=== PATIENT | male | born 1975 | race Caucasian/White ===

== ENCOUNTER 2020-04-14 10:53 | Outpatient (CLI) | payer OTHER, SELFPAY ==
--- NOTE | ~2020-04-14 | MR_ITS ---
EXAMINATION: MR cervical spine wo con EXAM DATE: 04/14/2020 11:39 INDICATION: Cervical fusion. Left arm Radiculopathy. TECHNIQUE: Multi-sequential, multiplanar MR images of the cervical spine were obtained without contra st. Axial T2, axial T2 MERGE sequence. Sagittal T1, T2, T2 fat saturation images also obtained. Th ere is no prior study for comparison. FINDINGS: There is mild to moderate disc disease at C3-4. Interbody, C4-5 and 5-6 vertebral bodies h ave solid bone osseous fusion. C6-7 has anterior plate with supporting screws, moderate disc disease. The spinal cord signal intensity and intrinsic morphology is normal. Cervicomedullary junction is n ormal in appearance. There are no suspicious marrow signal abnormalities. Paraspinal soft tissue is u nremarkable. Level by level evaluation: C2-C3: Disc does not extend beyond the endplate margin. Uncovertebral joint arthropathy: Mild bilateral. Facet joint arthropathy: Mild to moderate right, mild left. Neural foraminal stenosis: Mild right. Central canal stenosis: No stenosis. C3-C4: There is a mild diffuse disc bulge. Uncovertebral joint arthropathy: Moderate bilateral. Facet joint arthropathy: Moderate bilateral. Neural foraminal stenosis: Moderate to severe right, moderate left. Central canal stenosis: Mild. C4-C5: This level is fused. Uncovertebral joint arthropathy: Fused.. Facet joint arthropathy: None. Neural foraminal stenosis: No stenosis. Central canal stenosis: No stenosis. C5-C6: This level is fused. Uncovertebral joint arthropathy: Fused. Facet joint arthropathy: None. Neural foraminal stenosis: No stenosis. Central canal stenosis: No stenosis. C6-C7: There is a mild diffuse disc bulge. Uncovertebral joint arthropathy: Moderate to severe left, moderate right. Facet joint arthropathy: Moderate right, mild to moderate left. Neural foraminal stenosis: Moderate left, mild to moderate right. Central canal stenosis: Mild. C7-T1: Disc does not extend beyond the endplate margin. Uncovertebral joint arthropathy: Mild bilateral. Facet joint arthropathy: Moderate right, mild left. Neural foraminal stenosis: No stenosis. Central canal stenosis: No stenosis. IMPRESSION: Cervical fusion, multilevel spondylosis as above. Reviewed, dictated and finalized at location B.
== END 2020-04-14 10:54 | disposition home or self-care (01) ==
LOC: ANHIMG 10:58
PROVIDERS: PCP Internal Medicine; Visit Provider Nurse Practitioner
DX: M47.812 Spondylosis without myelopathy or radiculopathy, cervical region (principal); Z98.1 Arthrodesis status
CPT/HCPCS: 72141

== ENCOUNTER 2020-05-03 10:01 | Outpatient (CLI) | payer OTHER, SELFPAY ==
--- NOTE | ~2020-05-03 | XR_ITS ---
EXAMINATION: XR chest 2V 05/03/2020 10:28 INDICATION: Chest pain PROCEDURE: 2 view chest COMPARISON: No prior studies for comparison. FINDINGS: The lungs are clear. The cardiomediastinal silhouette is within normal limits. There are no pleural effusions. There is no pneumothorax suspected. IMPRESSION: 1: NO ACUTE CARDIOPULMONARY DISEASE. Reviewed, dictated and finalized at location B.
== END 2020-05-03 10:02 | disposition home or self-care (01) ==
PROVIDERS: PCP Internal Medicine; Visit Provider Clinical Nurse Specialist
DX: R06.89 Other abnormalities of breathing (principal)
CPT/HCPCS: 71046

== ENCOUNTER 2022-05-19 08:02 | Outpatient (CLI) | payer OTHER, SELFPAY ==
[2022-05-19 11:04] LABS: Basophils Absolute Auto 0.1 K/mm3 (0.0-0.1); Basophils Percent Auto 0.6 % (0.2-1.2); Eosinophils Absolute Auto 0.2 K/mm3 (0-0.3); Eosinophils Percent Auto 1.4 % (0-4.4); Hematocrit 47.3 % (42.0-52.0); Hemoglobin 15.8 g/dL (14.0-18.0); Immature Granulocyte Absolute 0.08 K/mm3 (0.00-0.031); Immature Granulocyte Percent A 0.5 % (0-0.5); Lymphocytes Absolute Auto 3.48 K/mm3 (0.9-3.2); Lymphocytes Percent Auto 20.5 % (18.3-44.2); Mean Corpuscular HGB Conc 33.4 g/dl (32-36); Mean Corpuscular Hemoglobin 31.7 pg (26-34); Mean Platelet Volume 8.7 fl (7.4-10.4); Monocytes Absolute Auto 1.4 K/mm3 (0.1-0.6); Monocytes Percent Auto 8.2 % (2.6-8.5); Neutrophils Absolute Auto 11.7 K/mm3 (1.3-6.7); Neutrophils Percent Auto 68.8 % (45.5-73.1); Platelet Count Result 437 k/mm3 (150-375); Red Blood Count 4.98 M/mm3 (4.6-6.20); Red Cell Distribution Width 14.5 % (11.5-14.5)
[2022-05-19 12:48] LABS: Erythrocyte Sedimentation Rate 4 mm/hr (0-20)
== END 2022-05-19 08:03 | disposition home or self-care (01) ==
LOC: ANHGOSHLAB 08:03
PROVIDERS: PCP Internal Medicine; Visit Provider Internal Medicine
DX: D72.829 Elevated white blood cell count, unspecified (principal); M54.6 Pain in thoracic spine
CPT/HCPCS: 36415; 85025; 85652

== ENCOUNTER 2022-05-25 07:44 | Outpatient (CLI) | payer OTHER, SELFPAY ==
--- NOTE | ~2022-05-25 | MR_ITS ---
EXAMINATION: MR thoracic spine wo con DATE: 05/25/2022 09:28 INDICATION: Thoracic back pain. TECHNIQUE: Magnetic resonance imaging (MRI) of the thoracic spine was performed without intravenous c ontrast. COMPARISON: Chest 2 views 05/03/2020 FINDINGS: Bone alignment is normal. There is mild chronic anterior wedging of T6-T9 vertebral bodies. There is mildly decreased disc height from T2-T3 through T8-T9. At T1-T2, there is a left central an d foraminal zone extrusion with mild central canal stenosis. At T2-T3, there is a central extrusion w ith mild central canal stenosis and ventral indentation of the spinal cord. At T3-T4, there is a left foraminal extrusion. At T4-T5, there is a left central extrusion with mild central canal stenosis an d ventral indentation of the spinal cord. At T5-T6, there is a left central extrusion with mild centr al canal stenosis. At T6-T7, there is a central extrusion with mild central canal stenosis and ventra l indentation of the spinal cord. At T7-T8, there is a central extrusion with mild central canal sten osis and ventral indentation of the spinal cord. At T10-T11, there is a central extrusion with mild c entral canal stenosis. There is multilevel mild to moderate facet joint osteoarthritis. On the right, there is mild neural foraminal stenosis at T8-T9. On the left, there is mild neural foraminal stenos is at T1-T2, T2-T3, T3-T4, T8-T9, and T9-T10. The spinal cord signal intensity is normal. IMPRESSION: 1. Mild thoracic spondylosis. Reviewed, dictated and finalized at location A.
== END 2022-05-25 07:45 | disposition home or self-care (01) ==
LOC: ANHIMG 07:54
PROVIDERS: PCP Internal Medicine; Visit Provider Clinical Nurse Specialist
DX: M48.02 Spinal stenosis, cervical region (principal); M47.894 Other spondylosis, thoracic region
CPT/HCPCS: 72146

== ENCOUNTER 2022-06-11 09:18 | Outpatient (CLI) | payer OTHER, SELFPAY ==
[2022-06-12 10:08] LABS: Basophils Absolute Auto 0.1 K/mm3 (0.0-0.1); Basophils Percent Auto 0.3 % (0.2-1.2); Eosinophils Absolute Auto 0.3 K/mm3 (0-0.3); Eosinophils Percent Auto 1.8 % (0-4.4); Hematocrit 46.6 % (42.0-52.0); Hemoglobin 15.4 g/dL (14.0-18.0); Immature Granulocyte Absolute 0.05 K/mm3 (0.00-0.031); Immature Granulocyte Percent A 0.3 % (0-0.5); Lymphocytes Absolute Auto 2.58 K/mm3 (0.9-3.2); Lymphocytes Percent Auto 17.2 % (18.3-44.2); Mean Corpuscular Volume 96.9 fl (80-100); Mean Platelet Volume 9.3 fl (7.4-10.4); Monocytes Absolute Auto 0.9 K/mm3 (0.1-0.6); Monocytes Percent Auto 6.2 % (2.6-8.5); Neutrophils Absolute Auto 11.1 K/mm3 (1.3-6.7); Neutrophils Percent Auto 74.2 % (45.5-73.1); Platelet Count Result 377 k/mm3 (150-375); Red Blood Count 4.81 M/mm3 (4.6-6.20); Red Cell Distribution Width 14.4 % (11.5-14.5)
[2022-06-12 10:32] LABS: Alanine Aminotransferase 15 U/L (6-50); Albumin Level 4.4 g/dL (3.5-5.1); Alkaline Phosphatase 66 U/L (38-126); Anion Gap 11 mmol/L (8-16); Aspartate Amino Transferase 19 U/L (17-59); Bilirubin,Total 0.4 mg/dL (0.2-1.3); Blood Urea Nitrogen 15 mg/dL (9-20); CRP 1.4 mg/dL (<1.0); Calcium 8.8 mg/dL (8.4-10.2); Carbon Dioxide 24 mmol/L (22-30); Chloride 100 mmol/L (98-107); Estimated Glomerular Filt Rate > 60; Glucose 109 mg/dL (65-110); Potassium 3.8 mmol/L (3.4-5.0); Sodium 135 mmol/L (137-145)
[2022-06-12 11:47] LABS: Erythrocyte Sedimentation Rate 11 mm/hr (0-20)
== END 2022-06-11 09:19 | disposition home or self-care (01) ==
LOC: ANHLAB 09:20
PROVIDERS: PCP Internal Medicine; Visit Provider Internal Medicine Hematology & Oncology
DX: D72.829 Elevated white blood cell count, unspecified (principal)
CPT/HCPCS: 36415; 80053; 85025; 85652; 86140

== ENCOUNTER 2023-07-06 08:56 | Outpatient (RCR) | payer OTHER, SELFPAY ==
--- NOTE | 2023-07-06 09:51 | PTOPEVAL1 ---
Assessment and note entered by Judith Greenberg, PT, DPT Evaluation Information Assessment Status Evaluation Diagnosis R arm pain Onset 7 months Subjective Information Pt states he is having a lot of pain in his elbow when he is trying to entry level things in his R hand. He states this happened a few years ago in his L arm and he had another neck surgery and this fixed the pain on his L side. He reports a history of 4 cervical and 2 lumbar spinal surgeries, his neck is fused from C4-T1, he states one of these levels broke and is no longer fused. He reports a 7 month history of R arm pain. He reports pain inside his L shoulder blade, his R elbow at the lateral epicondyle, and chronic, almost daily headaches. He also reports numbness and tingling in his R hand. Reported Pain Level Pain Score 2: Self Report Assessment PT Clinical Summary Raheel presents to therapy today for his initial evaluation with a diagnosis of R arm pain. Today he demonstrates active wrist ROM that is decreased on his R compared to his L and has increased stretch sensation during. He demonstrates point tenderness at his R lateral epicondyle. Today he was instructed in a HEP and home ice massage to manage inflammation. He is scheduled for follow up in 1 month. Plan of Care Interventions Hot Pack/Cold Pack,Manual Therapy,Neuro Re- education,Patient/Caregiver Educati,Therapeutic Activities,Therapeutic Exercise PT Services Indicated Yes Treatment Frequency and follow up in 1 month Duration These treatments will address the objective and functional deficits as defined above. The patient will be advanced safely and appropriately in order for the patient to progress towards his/her prior level of function. Additional exercises will be introduced and as well as a comprehensive home exercise program upon discharge, if needed, ?to ensure carryover of functional gains achieved in the clinic. This treatment plan has been reviewed and agreement upon by the patient.
--- NOTE | 2023-08-03 09:15 | PCPTNOTE ---
Patient did not show up for scheduled appointment this date. Called and LVM with instructions to follow up.
--- NOTE | 2023-08-24 09:53 | PTOPDC ---
Assessment and note entered by Judith Greenberg, PT, DPT Evaluation Information Assessment Status Discharge - Pt Not Present Diagnosis R arm pain Onset 7 months Subjective Information Pt did not show up for his scheduled re-evaluation on 08/03/23. LVM for pt with follow up instructions and have not heard back from him. Assessment PT Clinical Summary Raheel attended his evaluation on 07/06/23 and did not completed or attend any follow up appointments . He will be discharged at this time d/t poor therapy attendance.
== END 2023-08-24 10:29 | disposition home or self-care (01) ==
LOC: ANHGOSHPT 08:56
PROVIDERS: PCP Internal Medicine; Visit Provider Internal Medicine
DX: M77.11 Lateral epicondylitis, right elbow (principal); M54.2 Cervicalgia; G89.29 Other chronic pain
CPT/HCPCS: 97110; 97161; 99199

== ENCOUNTER 2023-10-02 13:03 | Outpatient (CLI) | payer OTHER, SELFPAY ==
--- NOTE | ~2023-10-02 | XR_ITS ---
EXAMINATION: XR thoracic spine 3V DATE: 10/02/2023 15:39 INDICATION: Thoracic spine pain TECHNIQUE: AP, lateral and lateral swimmer's views of the thoracic spine were obtained. COMPARISON: MRI, 05/25/2022 FINDINGS: There are partially imaged changes of cervicothoracic fusion. Bone alignment is normal. The re is no fracture. There is mild loss of intervertebral disc space height in the mid and upper thorac ic spine. The vertebral body heights are maintained. Small degenerative osteophytes project from the anterior endplates of multiple vertebral bodies. IMPRESSION: 1. Mild thoracic spondylosis without acute findings or significant interval change. Reviewed, dictated and finalized at location B. 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 Mild thoracic spondylosis without acute findings or significant interval matias e.
--- NOTE | ~2023-10-02 | XR_ITS ---
EXAMINATION:XR cervical spine 4-5V DATE: 10/02/2023 15:39 INDICATION: Neck pain TECHNIQUE: AP, lateral, bilateral oblique and odontoid views of the cervical spine are provided. COMPARISON: MRI, 04/14/2020 FINDINGS: There are changes of interval posterior fusion from C5 through T1. Changes of anterior fusi on at C6-7 are again noted. There are 2 mm of chronic retrolisthesis of C3 on C4. The odontoid proces s is intact. No fracture is identified. There is moderate loss of intervertebral disc space height at C3-4. Prevertebral soft tissues are normal. IMPRESSION: 1. Changes of interval posterior fusion from C5 through T1 without acute findings. Reviewed, dictated and finalized at location B. NE SPECIALIST IMPRESSION: 1. Changes of interval posterior fusion from C5 through T1 without acute findin .
== END 2023-10-02 13:04 | disposition home or self-care (01) ==
LOC: ANHASCIMG 13:05
PROVIDERS: PCP Internal Medicine; Visit Provider Anesthesiology Pain Medicine
DX: M96.1 Postlaminectomy syndrome, not elsewhere classified (principal); M54.2 Cervicalgia; M47.812 Spondylosis without myelopathy or radiculopathy, cervical region; M54.12 Radiculopathy, cervical region; M47.814 Spondylosis without myelopathy or radiculopathy, thoracic region
CPT/HCPCS: 72050; 72072

== ENCOUNTER 2023-10-13 09:15 | Outpatient (RCR) | payer OTHER, SELFPAY ==
--- NOTE | 2023-09-22 13:40 | PTOPEVAL1 ---
Assessment and note entered by Kurt Blakely, PT Evaluation Information Assessment Status Evaluation Diagnosis Postlaminectomysyndrome, Cervicalgia, Spondylosis cervical, Thoracic pain Onset August 2020 Subjective Information Reports that has seen improvement in R elbow since injections. At this point he has been having a lot of headaches and rigidity in the neck. He is R handed. He has been struggling to sleep and has been having night sweats off and on for years. He tried to detox 2 weeks ago and has not had any night sweats since. Sleeping better but still having pain at night. Reports that he has some neuropathy in feet and hands. Reported Pain Level Pain Score 5: Self Report Assessment PT Clinical Summary Patient has significant restriction in cervical spine but can be expected with levels of fusion. Demonstrates significant muscle tenderness in bilateral upper trapezius and weakness in bilateral periscapular. 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 Plan of Care Interventions Electrical Stimulation,Hot Pack/Cold Pack,Manual Therapy,Neuro Re-education,Therapeutic Activities, Therapeutic Exercise PT Services Indicated Yes Treatment Frequency and 2x/week for 6 weeks Duration These treatments will address the objective and functional deficits as defined above. The patient will be advanced safely and appropriately in order for the patient to progress towards his/her prior level of function. Additional exercises will be introduced and as well as a comprehensive home exercise program upon discharge, if needed, ?to ensure carryover of functional gains achieved in the clinic. This treatment plan has been reviewed and agreement upon by the patient.
--- NOTE | 2023-09-22 13:40 | OPREHPOC ---
Outpatient Therapy Plan of Care This is a Multidisciplinary Plan of Care that may contain components documented by all disciplines (PT, OT, and ST.) PT Problem 1 PT Problem #1 Knowledge Deficit PT Goal 1 Goal [place] with HEP Target Visit 4 PT Problem 2 PT Problem #2 Pain PT Goal 1 Goal Report no loss of sleep secondary to pain Target Visit 8 PT Problem 3 PT Problem #3 Impaired Strength PT Goal 1 Goal Improve ghislaine periscapular strength to 4+/5 to improve postural stability with ADL performance Target Visit 12 PT Problem 4 PT Problem #4 Impaired Range of Motion PT Goal 1 Goal Demonstrate even 60 degrees of cervical rotation bilaterally to improve upper trap mobility for postural correction Target Visit 12
--- NOTE | 2023-09-30 09:37 | PCPTNOTE ---
Patient reports he cannot come in this date due to having a bad headache.
--- NOTE | 2023-10-06 08:42 | PCPTNOTE ---
Patient was a No Show for today's appointment.
--- NOTE | 2023-10-08 09:07 | PCPTNOTE ---
Patient called and states his whole family has covid and cannot make it.
--- NOTE | 2023-10-13 09:34 | PCPTNOTE ---
Patient did not show up for scheduled appointment this date. Called and LVM reminding pt of next appointment.
--- NOTE | 2023-10-15 08:17 | PCPTNOTE ---
Patient no showed to appointment this date. Patient will be discharged per cancelation policy.
--- NOTE | 2023-10-15 08:30 | PCPTNOTE ---
Patient no showed to appointment this date. Called and spoke with patient who states his family has been sick and that is why he has not made appointments. Patient reports he has burning in both arms still. Confirmed with patient about upcoming appointment and was made aware if he did not show he would be discharged per attendance policy.
--- NOTE | 2023-10-23 17:14 | PTOPDC ---
Assessment and note entered by Kurt Blakely, PT Discharge Information Assessment Status Discharge - Pt Not Present Diagnosis Post laminectomy syndrome, Cervicalgia, Spondylosis cervical, Thoracic pain Onset August 2020 Subjective Information Reports that has seen improvement in R elbow since injections. At this point he has been having a lot of headaches and rigidity in the neck. He is R handed. He has been struggling to sleep and has been having night sweats off and on for years. He tried to detox 2 weeks ago and has not had any night sweats since. Sleeping better but still having pain at night. Reports that he has some neuropathy in feet and hands. Assessment PT Clinical Summary Patient failed to return to therapy for Re- Evaluation on POC. Patient has cancelled or No Shown 6 appointments grossly exceeding cancellation policy and will be discharged from skilled therapy at this time. Plan of Care PT Services Indicated No D/C to HEP due to non compliance
== END 2023-10-26 09:01 | disposition home or self-care (01) ==
LOC: ANHGOSHPT 09:15
PROVIDERS: PCP Internal Medicine; Visit Provider Anesthesiology Pain Medicine
DX: M96.1 Postlaminectomy syndrome, not elsewhere classified (principal); M54.2 Cervicalgia; M47.812 Spondylosis without myelopathy or radiculopathy, cervical region; M54.6 Pain in thoracic spine; M47.814 Spondylosis without myelopathy or radiculopathy, thoracic region; M77.11 Lateral epicondylitis, right elbow
CPT/HCPCS: 97014; 97110; 97140; 97161; 99199; G0283

== ENCOUNTER 2023-12-09 14:49 | Outpatient (CLI) | payer OTHER, SELFPAY ==
--- NOTE | ~2023-12-09 | MR_ITS ---
MRI of the thoracic spine Clinical History: Postlaminectomy syndrome Technique: Axial T2-weighted and gradient images, and sagittal T1-weighted, T2-weighted, and STIR yvan ges were acquired. Following intravenous administration of 14 cc MultiHance gadolinium, T1-weighted f at-sat imaging was performed in the axial and sagittal planes. COMPARISON: 05/25/2022 Findings: There is no fracture or subluxation of the thoracic spine. Vertebral bodies maintain normal height and alignment. No suspicious bone marrow signal abnormality seen. There are multilevel mild disc protrusions/bulges, essentially stable from prior exam, most notably a t T7-T8, T8-T9, T3-T4, T4-T5, T5-T6, and T11-T12. No lawanda canal stenosis or cord compression evident at any level. No abnormal signal seen in the spinal cord. Paravertebral soft tissues are unremarkable. No abnormal postcontrast enhancement identified. Impression: Mild thoracic spondylosis, essentially stable from prior exam. Reviewed, dictated and finalized at [facility]. ER GUARD Impression: Mild thoracic spondylosis, essentially stable from prior exam.
--- NOTE | ~2023-12-09 | MR_ITS ---
MRI of the cervical spine Clinical History: Postlaminectomy syndrome Technique: Axial T2-weighted and gradient images, and sagittal T1-weighted, T2-weighted, and STIR yvan ges were acquired. Following intravenous administration of 14 cc MultiHance gadolinium, T1-weighted f at-sat imaging was performed in the axial and sagittal planes. COMPARISON: 04/14/2020 Findings: No acute fracture or subluxation seen. There are stable postfusion changes from C4 through C7 with associated susceptibility artifact. Osseous alignment is unchanged. No suspicious bone marrow signal abnormality seen. At C2-C3, there is minimal disc bulge. No spinal canal stenosis, cord compression, or definite neural foraminal narrowing. At C3-C4, there is moderate to advanced degenerative disc narrowing. There is disc osteophyte complex with mild canal stenosis but no lawanda cord compression. There is advanced bilateral neural foraminal narrowing. No distinct spinal canal stenosis or cord compression seen from C4 through C7. Neural foramina appear preserved. No abnormal signal evident in the spinal cord. Paravertebral soft tissues are unremarkable aside from postoperative change. No abnormal postcontrast enhancement seen. Impression: [id number] degenerative spondylosis at C3-C4, as detailed above. Extensive post fusion changes from C4 through C7, stable from prior exam. Reviewed, dictated and finalized at [facility]. 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 Extensive post fusion changes from C4 through C7, stable from prior exam.
== END 2023-12-09 14:50 | disposition home or self-care (01) ==
LOC: ANHIMG 14:52
PROVIDERS: PCP Internal Medicine; Visit Provider Anesthesiology Pain Medicine
DX: M47.814 Spondylosis without myelopathy or radiculopathy, thoracic region (principal); M96.1 Postlaminectomy syndrome, not elsewhere classified; M43.02 Spondylolysis, cervical region; M43.22 Fusion of spine, cervical region
CPT/HCPCS: 72156; 72157; A9577

== ENCOUNTER 2024-01-05 08:06 | Day surgery (SDC) | payer OTHER, SELFPAY ==
--- NOTE | ~2024-01-05 | XR_ITS ---
EXAMINATION: XR fluoroscopy no charge DATE: 01/05/2024 10:40 CDT INDICATION: RIGHT C2-3,C3,C4 BK . TECHNIQUE: 6 fluoroscopic images of the cervical spine were obtained during right C2-3, C3, and C4 ne rve block, performed by Raymon Albarran MD. I was not present during the procedure. Fluoroscopy expo sure time was 13.2 seconds. Air Kerma 1.11 mGy. COMPARISON: None FINDINGS/IMPRESSION: Fluoroscopic documentation of right C2-3, C3, and C4 nerve block. Please refer to the operative note for complete procedural details. Reviewed, dictated and finalized at location K.
[2024-01-05 09:30] VITALS: BP 168/114; PULSE 83; RESP 14; TEMP 36.7; O2SAT 100
--- NOTE | 2024-01-05 10:32 | WPDHPUPDATE1 ---
History and Physical Update Update Date/Time: 01/05/24 10:32 History and Physical has been reviewed, including an updated exam of the patient. There are NO changes in the patient's condition. Risks, benefits, and alternatives have been discussed and questions answered. Patient agrees to proceed with procedure.
--- NOTE | 2024-01-05 10:33 | W.PM.PROC2 ---
Procedure Note - Detailed Date of Procedure 01/05/24 Pre-op Diagnosis Cervical Spondylosis wo Myelopathy, Cervicalgia Post-op Diagnosis Same Procedure Performed right C2-3, C3, C4 medial branch nerve block (#1) addressing the right C2-3, C3-4 facet joints under fluoroscopic guidance with contrast control. Surgeon Raymon Albarran MD Anesthesia Local Description of Procedure INFORMED CONSENT: Risks, benefits and alternatives to the procedure were discussed in detail with the patient who expressed explicit understanding and consent to proceed. Patient was informed verbally and in written form regarding the risks associated with the procedure including the low risk of serious infection, bleeding/bruising, allergic reaction, nerve or organ injury, paralysis, procedural site pain or discomfort, worsening pain and/or mobility, failure to treat and/or disfigurement. The patient expressed explicit understanding and consent to proceed. All materials required for the procedure were available prior to procedure start. Site and side was marked prior to procedure and confirmed in the presence of the patient. PROCEDURE IN DETAIL: The patient was brought to the procedural suite and placed in the Left lateral decubitus position with head stabilized. Patient was made comfortable with use of pillows under the head/chest and between the knees and ankles. Skin overlying the injection site on the affected side(s) was prepared broadly with ChloraPrep applicator and draped in a sterile manner. Aseptic technique was used throughout. The endplates of the vertebral bodies at the site(s) of interest were aligned in the Lateral view. Image was optimized for visualization of the pars interarticularis at each target site. Local anesthesia was established by infiltration with approximately 5 mL of 1% lidocaine via a 1-1/2 inch 27- gauge needle. A 25-gauge 3.5 inch Quincke spinal needle was advanced until the needle tip contacted the periosteum of the pars interarticularis at the target site, right C2-3 peripheral branch. AP view was utilized to confirm the appropriate placement of the needle tip just lateral to the periosteum at the center point of the pars interarticularis. In the Lateral view, 0.25 mL of Omnipaque 300 contrast medium was injected after negative aspiration for CSF, blood or other bodily fluid, showing appropriate extra-articular spread of contrast without evidence of intravascular, foraminal or intrathecal placement. A 0.5 mL solution of 0.5% PF bupivacaine was injected after negative repeat aspiration. Appropriate spread of the injectate was confirmed with washout of previously injected contrast. No parasthesias were elicited. Needle was removed completely intact without difficulty. The same procedure was repeated for all additional intended levels/structures treated on the ipsilateral side, right C3, C4 medial branches with identical methodology modified to compensate for different location, with similar results and no evidence of complication. Patient tolerated this well. Images were saved and documented in the patient chart. Patient's skin was cleaned and sterile bandage applied. The patient tolerated the procedure well. The patient was transported to the recovery area in stable condition where they were observed for an appropriate amount of time prior to discharge, without evidence of complication. Patient was instructed on the appropriate completion of a pain diary over the next 12-24 hours. The patient was instructed to avoid excessive activity for the next 48 hours, including climbing and frequent use of stairs. Showers only for 48 hours. They were instructed not to drive or operate heavy machinery for 24 hours. They are to monitor for severe headaches, fevers, chills, night sweats, erythema/swelling at the site or any other signs of infection, bleeding/bruising, bowel or bladder changes as well as new pain, weakness or numbness in the upper or lower extremity. Should
[2024-01-05 10:52] VITALS: BP 160/87; PULSE 85; RESP 16; O2SAT 99
[2024-01-05] MEDS: BUPivacaine HCL 0.5% 10 ML AMP 5 ML INFILTRATE (10:55)
[2024-01-05 10:57] VITALS: BP 159/92; PULSE 82; RESP 14; O2SAT 99
[2024-01-05 11:00] VITALS: BP 163/99; PULSE 74; RESP 18; O2SAT 100
[2024-01-05] MEDS: LIDOCAINE HCL 1% PF INJ 5 ML VIAL 1 ML XX (11:02)
== END 2024-01-05 11:16 | disposition home or self-care (01) ==
PROVIDERS: PCP Internal Medicine; Visit Provider Anesthesiology Pain Medicine
PROC: (CPT 64490; principal; 2024-01-05 10:00)
DX: M47.812 Spondylosis without myelopathy or radiculopathy, cervical region (principal); M54.2 Cervicalgia
CPT/HCPCS: 64490; 64491; 99199